=== PATIENT | female | born 1945 | race Caucasian/White ===

== ENCOUNTER 2017-09-14 10:36 | Emergency (ER) | payer MEDICARE, OTHER ==
[2017-09-14 10:54] VITALS: O2SAT 100
--- NOTE | 2017-09-14 11:11 | ERPHSYRPT ---
- History of Present Illness Time Seen by Provider: 09/14/17 11:00 Source: patient Exam Limitations: no limitations Patient Subjective Stated Complaint: Pt states she noticed her heartrate was a little fast this morning while she was resting (HR = 90) and it got up to 139 while she was brusing her teeth. She then came to pulmonary rehab and did a few exercises but she felt more short of breath than normal, heart was still racing, and she was very diaphoretic. They called Dr. Dias's office and he recommended coming to the ED to get checked out. Triage Nursing Assessment: Pt alert and oriented x3. skin pink, cool, and diaphoretic. afebrile. radial pulse present and regular - HR 110 by palpation Physician History: The patient is a 72-year-old female with her complaining of an elevated heart rate and shortness of breath while she was at physical therapy just prior to arrival. Her heart rate was up in the 140s while doing some exercising at physical therapy. They called her nutrition manager, Dr. Dias, who recommended she be evaluated in the ER. She has pulmonary fibrosis and normally uses 2 L of supplemental oxygen and physical therapy but today she was requiring 4 L and still was having shortness of breath. She denied chest pain. She was also very sweaty while in physical therapy. She denies nausea or vomiting. Her past medical history is significant for pulmonary fibrosis, mitral valve prolapse, hypothyroidism, hypertension, and high cholesterol. Timing/Duration: today, sudden, improved Activities at Onset: activity Severity of Pain-Max: none Severity of Pain-Current: none Modifying Factors: Improves With: exertion, oxygen Nitro Today/Relief: no nitro taken today Aspirin Treatment Today: 81 mg x 1, provided at home Associated Symptoms: shortness of breath, diaphoresis, No chest pain Prior Chest Pain/Cardiac Workup: echocardiography Allergies/Adverse Reactions: Iodinated Contrast- Oral and IV Dye Allergy (Verified 09/14/17 11:01) Home Medications: Aspirin EC 81 mg [Ecotrin 81 mg] 81 mg PO DAILY 09/14/17 [History] Atenolol 25 mg PO DAILY 09/14/17 [History] Atorvastatin Calcium [Lipitor 20MG Tablet] 20 mg PO DAILY 09/14/17 [History] Calcium Carbonate [Calcium] 600 mg PO DAILY 09/14/17 [History] Cholecalciferol (Vitamin D3) [Vitamin D] 5,000 unit PO WEEKLY 09/14/17 [ History] Cyanocobalamin 100 Mcg [Vitamin B-12 100 Mcg] 100 mcg PO DAILY 09/14/17 [ History] Estradiol 1 mg [Estrace 1 mg] 1 mg PO DAILY 09/14/17 [History] Famotidine 40 mg PO DAILY 09/14/17 [History] Ferrous Sulfate [Slow Release Iron] 65 mg PO DAILY 09/14/17 [History] Levothyroxine Sodium 88 Mcg [Synthroid 88 Mcg] 88 mcg PO DAILY 09/14/17 [ History] Multivitamin [Multi-Vitamin Daily] 1 each PO DAILY 09/14/17 [History] Pirfenidone [Esbriet] 267 mg PO TID 09/14/17 [History] Ubidecarenone/Vit E Acet [Co Q-10 100 mg Softgel] 1 each PO DAILY 09/14/17 [ History] Hx Influenza Vaccination/Date Given: Yes Hx Pneumococcal Vaccination/Date Given: Yes Immunizations Up to Date: Yes - Review of Systems Constitutional: No Fever, No Chills Eyes: No Symptoms Ears, Nose, & Throat: No Symptoms Respiratory: Dyspnea on Exertion (WALL), No Cough Cardiac: Other (tachycardia), No Chest Pain, No Edema, No Syncope Abdominal/Gastrointestinal: No Abdominal Pain, No Nausea, No Vomiting, No Diarrhea Genitourinary Symptoms: No Dysuria Musculoskeletal: No Back Pain, No Neck Pain Skin: No Rash Neurological: No Symptoms Psychological: No Symptoms Endocrine: No Symptoms Hematologic/Lymphatic: No Symptoms Immunological/Allergic: No Symptoms All Other Systems: Reviewed and Negative - Past Medical History Pertinent Past Medical History: Yes Neurological History: No Pertinent History ENT History: No Pertinent History Cardiac History: High Cholesterol, Other Respiratory History: Sleep Apnea, Other Endocrine Medical History: Hypothyroidism Musculoskeletal History: No Pertinent History GI Medical History: GERD History: No Pertinent History Psycho-Social History: No Pertinent History Female Reproductive Disorders: No Pertinent History Other Medical History: pulmonary fibrosis, mitral valve prolapse - Past Surgical History Past Surgical History: Yes Cardiac: Cardiac Catheterization Musculoskeletal: Orthopedic Surgery Female Surgical History: Hysterectomy - Social History Smoking Status: Never smoker Exposure to second hand smoke: No Drug Use: none Patient Lives Alone: No - Female History Hx Now: No - Nursing Vital Signs Nursing Vital Signs: Initial Vital Signs Pulse Rate 113 H 09/14/17 10:37 Respiratory Rate 18 09/14/17 10:37 Blood Pressure 139/87 09/14/17 10:37 O2 Sat by Pulse Oximetry 100 09/14/17 10:37 Pain Scale Pain Intensity 0 - Physical Exam General Appearance: no apparent distress, alert Eye Exam: PERRL/EOMI, eyes nml inspection Ears, Nose, Throat Exam: normal ENT inspection, moist mucous membranes Neck Exam: normal inspection, non-tender, supple Respiratory Exam: normal breath sounds, lungs clear, No respiratory distress Cardiovascular Exam: normal heart sounds, tachycardia Gastrointestinal/Abdomen Exam: soft, No tenderness, No mass Pelvic Exam: not done Rectal Exam: not done Back Exam: normal inspection, No CVA tenderness, No vertebral tenderness Extremity Exam: normal inspection, normal range of motion Neurologic Exam: alert, oriented x 3, cooperative, normal mood/affect, nml cerebellar function, sensation nml, No motor deficits Skin Exam: normal color, warm, dry Lymphatic Exam: No adenopathy SpO2 Interpretation: O2 applied SpO2: 100 Oxygen Delivery: Room Air - Course EKG Interpreted by Me: RATE, Sinus Tach, NORMAL AXIS, NORMAL INTERVALS, NORMAL QRS, NORMAL ST-T - Radiology Exams Chest X-ray Interpretation: Reviewed by me, Teleradiologist Report, Negative ( nonacute chest with chronic features per Dr Morrell.) Ordered Tests: Active Orders 24 hr Category Date Time Status Clean Catch Urine Specimen STAT Care 09/14/17 11:18 Active EKG-ER Only STAT Care 09/14/17 11:18 Active IV Insertion STAT Care 09/14/17 11:18 Active CHEST 2 VIEWS (PA AND LAT) Stat Exams 09/14/17 11:19 Completed CBC W DIFF Stat Lab 09/14/17 11:18 Completed CMP Routine Lab 09/14/17 11:33 Completed TROPONIN Q3H Lab 09/14/17 11:33 Completed TROPONIN Q3H Lab 09/14/17 14:30 Ordered TROPONIN Q3H Lab 09/14/17 17:30 Ordered TROPONIN Q3H Lab 09/14/17 20:30 Ordered TROPONIN Q3H Lab 09/14/17 23:30 Ordered TSH, 3RD Generation Routine Lab 09/14/17 11:33 Completed UA W/RFX UR CULTURE Stat Lab 09/14/17 11:59 Completed Medication Summary Generic Name Dose Route Start Last Admin Trade Name Allyn PRN Reason Stop Dose Admin Sodium Chloride 1,000 mls @ 100 mls/hr 09/14/17 11:30 09/14/17 11:44 Sodium Chloride 0.9% 1000 Ml IV 10/14/17 11:29 100 mls/hr .Q10H DEVAN Administration Lab/Rad Data: Laboratory Result Diagrams 09/14/17 11:18 09/14/17 11:33 Laboratory Results 09/14/17 09/14/17 09/14/17 Range/Units 11:59 11:33 11:33 WBC (4.0-10.5) K/mm3 RBC (4.1-5.4) M/mm3 Hgb (12.0-16.0) gm/dl Hct (35-47) % MCV (78-100) fl MCH (26-32) pg MCHC (32-36) g/dl RDW (11.5-14.0) % Plt Count (150-450) K/mm3 MPV (6-9.5) fl Gran % (36.0-66.0) % Eos # (Auto) (0-0.5) Absolute Lymphs (auto) (1.0-4.6) Absolute Monos (auto) (0.0-1.3) Lymphocytes % (24.0-44.0) % Monocytes % (0.0-12.0) % Eosinophils % (0.00-5.0) % Basophils % (0.0-0.4) % Absolute Granulocytes (1.4-6.9) Basophils # (0-0.4) Sodium 144 (137-145) mmol/L Potassium 4.2 (3.5-5.1) mmol/L Chloride 104 (98-107) mmol/L Carbon Dioxide 28 (22-30) mmol/L Anion Gap 15.3 H (5-15) MEQ/L BUN 14 (7-17) mg/dL Creatinine 0.79 (0.52-1.04) mg/dL Estimated GFR > 60.0 ML/MIN Glucose 100 (74-106) mg/dL Calcium 9.0 (8.4-10.2) mg/dL Total Bilirubin 0.30 (0.2-1.3) mg/dL AST 23 (14-36) U/L ALT 9 (0-35) U/L Alkaline Phosphatase 118 (38-126) U/L Troponin I < 0.012 (0.000-0.034) ng/mL Serum Total Protein 6.9 (6.3-8.2) g/dL Albumin 3.9 (3.5-5.0) g/dL Free T4 1.07 (0.76-1.46) ng/dL TSH 3rd Generation 0.309 L (0.47-4.68) mIU/L Ur Collection Type VOID Urine Color YELLOW (YELLOW) Urine Appearance CLEAR (CLEAR) Urine pH 7.0 (5-6) Ur Specific [place] 1.005 (1.005-1.025) Urine Protein NEGATIVE (Negative) Urine Ketones NEGATIVE (NEGATIVE) Urine Blood NEGATIVE (0-5) Jeff/ul Urine Nitrite NEGATIVE (NEGATIVE) Urine Bilirubin NEGATIVE (NEGATIVE) Urine Urobilinogen NORMAL (0-1) mg/dL Ur Leukocyte Esterase NEGATIVE (NEGATIVE) Urine Culture Reflexed NO (NO) Urine Glucose NEGATIVE (NEGATIVE) mg/dL Specimen Received 09/14/17 1220 09/14/17 Range/Units 11:18 WBC 6.6 (4.0-10.5) K/mm3 RBC 3.76 L (4.1-5.4) M/mm3 Hgb 12.0 (12.0-16.0) gm/dl Hct 36.7 (35-47) % MCV 97.6 (78-100) fl MCH 31.9 (26-32) pg MCHC 32.7 (32-36) g/dl RDW 12.4 (11.5-14.0) % Plt Count 293 (150-450) K/mm3 MPV 8.3 (6-9.5) fl Gran % 75.9 H (36.0-66.0) % Eos # (Auto) 0.06 (0-0.5) Absolute Lymphs (auto) 0.77 L (1.0-4.6) Absolute Monos (auto) 0.72 (0.0-1.3) Lymphocytes % 11.7 L (24.0-44.0) % Monocytes % 11.0 (0.0-12.0) % Eosinophils % 0.9 (0.00-5.0) % Basophils % 0.5 (0.0-0.4) % Absolute Granulocytes 4.99 (1.4-6.9) Basophils # 0.03 (0-0.4) Sodium (137-145) mmol/L Potassium (3.5-5.1) mmol/L Chloride (98-107) mmol/L Carbon Dioxide (22-30) mmol/L Anion Gap (5-15) MEQ/L BUN (7-17) mg/dL Creatinine (0.52-1.04) mg/dL Estimated GFR ML/MIN Glucose (74-106) mg/dL Calcium (8.4-10.2) mg/dL Total Bilirubin (0.2-1.3) mg/dL AST (14-36) U/L ALT (0-35) U/L Alkaline Phosphatase (38-126) U/L Troponin I (0.000-0.034) ng/mL Serum Total Protein (6.3-8.2) g/dL Albumin (3.5-5.0) g/dL Free T4 (0.76-1.46) ng/dL TSH 3rd Generation (0.47-4.68) mIU/L Ur Collection Type Urine Color (YELLOW) Urine Appearance (CLEAR) Urine pH (5-6) Ur Specific [place] (1.005-1.025) Urine Protein (Negative) Urine Ketones (NEGATIVE) Urine Blood (0-5) Jeff/ul Urine Nitrite (NEGATIVE) Urine Bilirubin (NEGATIVE) Urine Urobilinogen (0-1) mg/dL Ur Leukocyte Esterase (NEGATIVE) Urine Culture Reflexed (NO) Urine Glucose (NEGATIVE) mg/dL Specimen Received - Progress Progress: improved Air Movement: good Progress Note: 09/14/17 13:40 Pt is feeling better. HR is now 87. Blood Culture(s) Obtained: No Antibiotics given: No Counseled pt/family regarding: lab results, diagnosis, need for follow-up, rad results - Departure Time of Disposition: 13:41 Departure Disposition: Home Clinical Impression: Tachycardia, Iatrogenic hyperthyroidism Condition: Stable Critical Care Time: No Referrals: DUDLEY MEDEROS [Primary Care Provider] - Additional Instructions: You had an elevated heart rate that was likely due to too much Synthroid. Your TSH level was low. The rest of your laboratory results were normal. Your chest x-ray showed stable pulmonary fibrosis. Please follow-up with Dr. Mederos later this week for reevaluation of your thyroid medicine.
[2017-09-14] MEDS ORDERED: Sodium Chloride 0.9% 1000 ML 1,000 ML IV SCH (11:30)
[2017-09-14 11:32] LABS: BASOPHIL % 0.5 % (0.0-0.4); Basophil (Absolute #) 0.03 (0-0.4); Eosinophil % 0.9 % (0.00-5.0); Eosinophil (Absolute #) 0.06 (0-0.5); Granulocyte Absolute (ANC) 4.99 (1.4-6.9); Granulocytes % 75.9 % (36.0-66.0); Hematocrit 36.7 % (35-47); Lymphocyte (Absolute #) 0.77 (1.0-4.6); Lymphocytes % 11.7 % (24.0-44.0); Mean Cell Volume 97.6 fl (78-100); Mean Corpuscular Hemoglobin 31.9 pg (26-32); Mean Corpuscular Hgb Concent. 32.7 g/dl (32-36); Mean Platelet Volume 8.3 fl (6-9.5); Monocyte (Absolute #) 0.72 (0.0-1.3); Platelet Count 293 K/mm3 (150-450); Red Blood Count 3.76 M/mm3 (4.1-5.4); Red Cell Distribution Width 12.4 % (11.5-14.0); White Blood Count 6.6 K/mm3 (4.0-10.5)
[2017-09-14] MEDS ORDERED: Sodium Chloride 0.9% 1000 ML 1,000 ML ONE (11:32)
--- NOTE | 2017-09-14 11:56 | XRAY ---
Indication: Short of breath and tachycardia. History pulmonary fibrosis. Comparison: None PA/lateral chest demonstrates diffuse pulmonary fibrosis consistent with patient's history. A few incidental calcified granulomas. No focal infiltrate, consolidation, or large effusion. Heart is not enlarged. Moderate sized hiatal hernia. Bony thorax intact with mild osteopenia and degenerative changes. Impression: Nonacute chest with chronic features.
[2017-09-14 12:36] LABS: Appearance CLEAR (CLEAR); Bilirubin NEGATIVE (NEGATIVE); Blood NEGATIVE Ery/ul (0-5); Glucose NEGATIVE (NEGATIVE); Ketones NEGATIVE (NEGATIVE); Leukocyte Esterase NEGATIVE (NEGATIVE); Nitrite NEGATIVE (NEGATIVE); Protein,Urine Dip NEGATIVE (Negative); Specific Gravity 1.005 (1.005-1.025); Urobilinogen NORMAL mg/dL (0-1)
[2017-09-14 12:39] LABS: ALBUMIN 3.9 g/dL (3.5-5.0); ALKALINE PHOSPHATASE 118 U/L (38-126); ANION GAP 15.3 MEQ/L (5-15); BLOOD UREA NITROGEN 14 mg/dL (7-17); CHLORIDE 104 mmol/L (98-107); Carbon Dioxide 28 mmol/L (22-30); Creatinine 1 0.79 mg/dL (0.52-1.04); Glucose 100 mg/dL (74-106); Potassium 4.2 mmol/L (3.5-5.1); SGOT/AST 23 U/L (14-36); SGPT/ALT 9 U/L (0-35); SODIUM 144 mmol/L (137-145); Total Protein 6.9 g/dL (6.3-8.2)
[2017-09-14 12:52] LABS: TROPONIN < 0.012 ng/mL (0.000-0.034)
[2017-09-14 13:08] LABS: TSH, 3RD Generation 0.309 mIU/L (0.47-4.68)
[2017-09-14 14:32] VITALS: BP 118/80; PULSE 76
== END 2017-09-14 14:25 | disposition home or self-care (01) ==
LOC: ED 10:36
DX: R00.0 Tachycardia, unspecified (principal); E05.90 Thyrotoxicosis, unspecified without thyrotoxic crisis or storm; Z79.82 Long term (current) use of aspirin; Z79.899 Other long term (current) drug therapy
CPT/HCPCS: 36000; 36415; 71046; 80053; 81002; 84439; 84443; 84484; 85025; 93005; 96360; 96361; 99284

== ENCOUNTER 2023-07-05 14:34 | Emergency (ER) | payer MEDICARE ==
[2023-07-05 14:50] VITALS: TEMP 99
[2023-07-05 15:17] LABS: Absolute Neutrophil Ct (ANC) 4.46 x10^3/uL (1.4-6.9); BASOPHIL % 0.5 % (0.0-0.4); Basophil (Absolute #) 0.03 x10^3/uL (0-0.4); Eosinophil % 0.7 % (0.00-5.0); Eosinophil (Absolute #) 0.04 x10^3/uL (0-0.5); Hematocrit 35.3 % (35-47); Hemoglobin 11.3 g/dL (12.0-16.0); IMMATURE GRAN # 0.01 x10^3u/L (0.00-0.03); IMMATURE GRAN % 0.2 % (0.00-0.4); Lymphocyte (Absolute #) 0.95 x10^3/uL (1.0-4.6); Lymphocytes % 15.8 % (24.0-44.0); Mean Cell Volume 91.9 fL (78-100); Mean Corpuscular Hemoglobin 29.4 pg (26-32); Mean Platelet Volume 8.8 fL (7.5-11.0); Monocyte (Absolute #) 0.54 x10^3/uL (0.0-1.3); Neutrophil % 73.8 % (36.0-66.0); Platelet Count 288 x10^3/uL (150-450); Red Blood Count 3.84 x10^6/uL (4.1-5.4); Red Cell Distribution Width 13.4 % (11.5-14.0)
--- NOTE | 2023-07-05 15:27 | ERPHSYRPT ---
- History of Present Illness Time Seen by Provider: 07/05/23 15:22 Source: patient Exam Limitations: no limitations Patient Subjective Stated Complaint: short of breath Triage Nursing Assessment: sob, started 2 days ago, no sick contacts, has pulmo nary fibrosis Physician History: Patient is 78-year-old female with significant past medical history of pulmonary fibrosis started having some chest congestion and mild shortness of breath for last 2 to 3 days. Today her symptoms got worse so she came to the emergency [facility] . Patient is using oxygen at home. Patient is on CPAP but unable to use it because of the leak from the side of the mask. Timing/Duration: day(s) (2-3 days) Severity of Dyspnea-Max: mild Severity of Dyspnea-Current: moderate Possible Cause: frequent episodes Associated Symptoms: cough, wheezing, No chest pain/discomfort, No edema, No fever, No insomnia, No lightheadedness, No weakness, No chills, No hemoptysis, No lightheadedness, No leg swelling Allergies/Adverse Reactions: Iodinated Contrast Media [Iodinated Contrast- Oral and IV Dye] Allergy (Verified 07/05/23 14:57) Home Medications: Aspirin EC 81 mg [Ecotrin 81 mg] 81 mg PO DAILY 09/14/17 [History] Atorvastatin Calcium [Lipitor 20MG Tablet] 20 mg PO DAILY 09/14/17 [History] Calcium Carbonate [Calcium] 600 mg PO DAILY 09/14/17 [History] Cholecalciferol (Vitamin D3) [Vitamin D] 5,000 unit PO WEEKLY 09/14/17 [History] Cyanocobalamin 100 Mcg [Vitamin B-12 100 Mcg] 500 mcg PO DAILY 09/14/17 [History] Famotidine 40 mg PO DAILY 09/14/17 [History] Ferrous Sulfate [Slow Release Iron] 65 mg PO DAILY 09/14/17 [History] Levothyroxine Sodium 88 Mcg [Synthroid 88 Mcg] 75 mcg PO DAILY 09/14/17 [History] Multivitamin [Multi-Vitamin Daily] 1 each PO DAILY 09/14/17 [History] Pirfenidone [Esbriet] 267 mg PO TID 09/14/17 [History] Ubidecarenone/Vit E Acet [Co Q-10 100 mg Softgel] 1 each PO DAILY 09/14/17 [History] atenoloL [Atenolol] 25 mg PO DAILY 09/14/17 [History] Hx Tetanus, Diphtheria Vaccination/Date Given: Yes Hx Influenza Vaccination/Date Given: Yes Hx Pneumococcal Vaccination/Date Given: Yes Immunizations Up to Date: Yes Travel Risk - International Travel Have you traveled outside of the country in past 3 weeks: No - Emerging Infectious Disease Symptoms: Cough: New Onset, Headaches/Body Aches/, Shortness of Breath - Review of Systems Constitutional: No Fever, No Chills Eyes: No Symptoms Ears, Nose, & Throat: No Symptoms Respiratory: Cough, Dyspnea on Exertion (WALL), Wheezing, No Dyspnea Cardiac: No Chest Pain, No Edema, No Syncope Abdominal/Gastrointestinal: No Abdominal Pain, No Nausea, No Vomiting, No Diarrhea Genitourinary Symptoms: No Dysuria Musculoskeletal: No Back Pain, No Neck Pain Skin: No Rash Neurological: No Dizziness, No Focal Weakness, No Sensory Changes Psychological: No Symptoms Endocrine: No Symptoms All Other Systems: Reviewed and Negative - Past Medical History Pertinent Past Medical History: Yes Neurological History: No Pertinent History ENT History: No Pertinent History Cardiac History: High Cholesterol, Other Respiratory History: Other Endocrine Medical History: Hypothyroidism Musculoskeletal History: Osteoarthritis GI Medical History: GERD History: No Pertinent History Psycho-Social History: No Pertinent History Female Reproductive Disorders: No Pertinent History Other Medical History: pulmonary fibrosis, mitral valve prolapse, - Past Surgical History Past Surgical History: Yes Cardiac: Cardiac Catheterization Musculoskeletal: Orthopedic Surgery Female Surgical History: Hysterectomy - Social History Smoking Status: Never smoker Exposure to second hand smoke: No Drug Use: none Patient Lives Alone: No - Nursing Vital Signs Nursing Vital Signs: Initial Vital Signs Temperature 99 F 07/05/23 14:35 Pulse Rate 107 H 07/05/23 14:35 Respiratory Rate 40 H 07/05/23 14:35 Blood Pressure 133/77 07/05/23 14:35 O2 Sat by Pulse Oximetry 93 L 07/05/23 14:35 Pain Scale Pain Intensity 7 - Physical Exam General Appearance: no apparent distress, alert Eye Exam: PERRL/EOMI Neck Exam: normal inspection, supple Respiratory Exam: diminished breath sounds, crackles/rales, rhonchi, wheezing Cardiovascular/Chest Exam: normal heart sounds, regular rate/rhythm Abdominal/Gastrointestinal Exam: soft, No tenderness, No distention, No mass Extremity Exam: non-tender, normal range of motion, normal inspection, no calf tenderness, no pedal edema Neurologic Exam: alert, oriented x 3, cooperative, instructional services librarian II-XII nml as tested, sensation nml, No motor deficits Skin Exam: normal color, warm, No dry SpO2 Interpretation: borderline oxygenation SpO2: 93 O2 Delivery: Room Air - Course Nursing assessment & vital signs reviewed: Yes - Radiology Exams Chest X-ray Interpretation: Interpreted by me (chronic pulmonary fibrosis), Reviewed by me Ordered Tests: Active Orders 24 hr Category Date Time Status CHEST 2 VIEWS (PA AND LAT) Stat Exams 07/05/23 14:53 Taken CBC W DIFF Stat Lab 07/05/23 15:16 Completed CMP Stat Lab 07/05/23 15:16 Completed MAGNESIUM Stat Lab 07/05/23 15:16 Completed NT PRO BNPII Stat Lab 07/05/23 15:16 Completed Medication Summary Discontinued Medications Generic Name Dose Route Start Last Admin Trade Name Freq PRN Reason Stop Dose Admin Methylprednisolone Sodium 0 mg 07/05/23 15:42 Succinate 125 mg/ Sterile IM 07/05/23 15:43 Water 2 ml STAT ONE Lab/Rad Data: Laboratory Result Diagrams 07/05/23 15:16 07/05/23 15:16 Laboratory Results 07/05/23 07/05/23 07/05/23 Range/Units 15:16 15:16 15:16 WBC 6.0 (4.0-10.5) x10^3/uL RBC 3.84 L (4.1-5.4) x10^6/uL Hgb 11.3 L (12.0-16.0) g/dL Hct 35.3 (35-47) % MCV 91.9 (78-100) fL MCH 29.4 (26-32) pg MCHC 32.0 (32-36) g/dL RDW 13.4 (11.5-14.0) % Plt Count 288 (150-450) x10^3/uL MPV 8.8 (7.5-11.0) fL Gran % 73.8 H (36.0-66.0) % Immature Gran % (Auto) 0.2 (0.00-0.4) % Nucleat RBC Rel Count 0.0 (0.00-0.1) % Eos # (Auto) 0.04 (0-0.5) x10^3/uL Immature Gran # (Auto) 0.01 (0.00-0.03) x10^3u/L Absolute Lymphs (auto) 0.95 L (1.0-4.6) x10^3/uL Absolute Monos (auto) 0.54 (0.0-1.3) x10^3/uL Absolute Nucleated RBC 0.00 (0.00-0.01) x10^3u/L Lymphocytes % 15.8 L (24.0-44.0) % Monocytes % 9.0 (0.0-12.0) % Eosinophils % 0.7 (0.00-5.0) % Basophils % 0.5 (0.0-0.4) % Absolute Granulocytes 4.46 (1.4-6.9) x10^3/uL Basophils # 0.03 (0-0.4) x10^3/uL Sodium 134 L (135-145) mmol/L Potassium 4.0 (3.5-5.1) mmol/L Chloride 102 (98-107) mmol/L Carbon Dioxide 27 (22-30) mmol/L Anion Gap 9.5 (5-15) MEQ/L BUN 13 (7-17) mg/dL Creatinine 0.95 (0.52-1.04) mg/dL Estimated GFR 62.1 ML/MIN Glucose 113 H (74-106) mg/dL Calcium 8.4 (8.4-10.2) mg/dL Magnesium 1.7 (1.6-2.3) mg/dL Total Bilirubin 0.30 (0.2-1.3) mg/dL AST 24 (14-36) U/L ALT 8 (0-35) U/L Alkaline Phosphatase 99 (38-126) U/L NT-Pro-B Natriuret Pep 189 (<300) pg/mL Serum Total Protein 7.5 (6.3-8.2) g/dL Albumin 3.6 (3.5-5.0) g/dL - Progress Progress: improved Blood Culture(s) Obtained: No Counseled pt/family regarding: lab results, diagnosis, need for follow-up, rad results Medical Desision Making - Diagnostic Testing Diagnostic test were ordered, analyzed, and reviewed by me: Yes Radiological Interpretation: Interpreted by me, Reviewed by me - Risk of complications Low Risk: Low risk of morbidity from additional dx testing or treatment - Departure Departure Disposition: Home Clinical Impression: Pulmonary interstitial fibrosis Condition: Stable Critical Care Time: No Referrals: CHERYL BARRY DO [Primary Care Provider] - Follow up/PCP as directed Instructions: Idiopathic pulmonary fibrosis Additional Instructions: Discharge/Care Plan WALT MORFIN was seen on 07/05/23 in the Emergency Room. The patient was counseled regarding Diagnosis,Lab results, Imaging studies, need for follow up and when to return to the Emergency Room. Prescriptions given: Discharge Note I have spoken with the patient and/or caregivers. I have explained the patient's condition, diagnosis and treatment plan based on the information available to me at this time. I have answered the patient's and/or caregiver's questions and addressed any concerns. The patient and/or caregivers have as good understanding of the patient's diagnosis, condition and treatment plan as can be expected at this point. The vital signs have been stable. The patient's condition is stable and appropriate for discharge from the emergency department. The patient will pursue further outpatient evaluation with the primary care physician or other designated or consulting physician as outlined in the discharge instructions. The patient and/or caregivers are agreeable to this plan of care and follow-up instructions have been explained in detail. The patient and/or caregivers have received these instruction. The patient/and or caregivers are aware that any significant change in condition or worsening of symptoms should prompt an immediate return to this or the closest emergency department or call 911. WALT MORFIN was seen on 07/05/23 n the Emergency Room. At that time you were treated for an emergent condition, during your visit Laboratory, Radiology and/or other procedures may have been ordered. It is very important that you follow-up with your Primary Care Physician CHERYL BARRY DO within the next 24-48 hours to review your Emergency Room visit and the final results of testing that was ordered. Some test results such as Urine Cultures, Blood Cultures, and other cultures if ordered will not be finalized for 24-48 hours. If you do not have a Primary Care Provider please call the medical records department at [phone] ext [phone] to obtain a copy of your results or you may sign into our patient portal to obtain these results by visiting us @ [email or web address] and completing the following steps: 1. Click on the Patient Portal link 2. Click the Patient Self Enrollment Link to complete the enrollment form and entering your 3. Once the enrollment form is completed you will receive an email with a temporary ID and password at the email address you provided. 4. Next choose a user name and password. Your user name must be at least 4 characters long and your password must be at least 4 characters long. 5. Choose a security question from the list and provide your answer to the question. If you already have signed into the Health Portal you may access your Health Care Information 22/09 by the following steps: 1. Login to our website @ [email or web address] 2. Enter your original user name and password. FAQS The [facility] Health Portal is an online tool that contains your Lab Results, Radiology Reports, Visit History, Discharge Instructions and Health Summary Lab and Radiology Results will not be available for 72 hours on the portal. The Portal is a secure site, passwords are encryted and URLs are re-written so they cannot be copied and pasted. You and authorized family members are the only ones who can access your Portal. Also there is a timeout feature that protects your information if you leave the Portal page open. If you have technical difficulty please use the Contact Us link on the page this will allow you to submit any questions you have regarding the Portal or you may contact the Medical Record Department at [phone] ext [phone]. Prescriptions: Cephalexin Mh 500 mg [Keflex 500 mg] 500 mg PO Q6H #40 cap Methylprednisolone Packet [Medrol Dosepack] 4 mg PO UD #21 packet
[2023-07-05 15:29] LABS: ALBUMIN 3.6 g/dL (3.5-5.0); ANION GAP 9.5 MEQ/L (5-15); BILIRUBIN,TOTAL 0.3 mg/dL (0.2-1.3); Calcium 8.4 mg/dL (8.4-10.2); Creatinine 1 0.95 mg/dL (0.52-1.04); EST GLOMERULAR FILTRATION RATE 62.1 ML/MIN; MAGNESIUM 1.7 mg/dL (1.6-2.3); Total Protein 7.5 g/dL (6.3-8.2)
[2023-07-05] MEDS ORDERED: solu-MEDROL ONE (15:54)
[2023-07-05] MEDS ORDERED: Sterile H2O 10 ml IJ ONE (15:54)
[2023-07-05] MEDS ORDERED: Rocephin 1000 MG INJ ONE (15:54)
[2023-07-05] MEDS ORDERED: XYLOCAINE 1% HCL 20 ML MDV ONE (15:55)
[2023-07-05] MEDS: Rocephin 1000 MG INJ IM ONE (16:01)
[2023-07-05] MEDS: solu-MEDROL 125 MG, Sterile H2O 10 ml 2 ML IM ONE (16:02)
[2023-07-05 16:08] VITALS: BP 118/89; PULSE 81; RESP 20; O2SAT 97
--- NOTE | 2023-07-05 19:52 | XRAY ---
Indication: Short of breath. Comparison: August 27, 2020 PA/lateral chest again demonstrates diffuse bilateral fibrosis/scarring and tiny left lung calcified granuloma. Heart not enlarged with enlarging moderate size hiatal hernia with intrathoracic stomach. Bony thorax intact again with osteopenia and mild degenerative changes. Impression: Continued nonacute chest with chronic features.
== END 2023-07-05 16:30 | disposition home or self-care (01) ==
LOC: ED 14:34
DX: J84.10 Pulmonary fibrosis, unspecified (principal); R06.02 Shortness of breath; E78.5 Hyperlipidemia, unspecified; Z79.52 Long term (current) use of systemic steroids; Z79.899 Other long term (current) drug therapy; Z99.81 Dependence on supplemental oxygen
CPT/HCPCS: 36415; 71046; 80053; 83735; 83880; 85025; 96372; 99283; J0696; J2919